=== PATIENT | male | born 1955 | race Caucasian/White ===

== ENCOUNTER 2021-04-27 21:50 | Emergency (ER) | payer MEDICARE, SELFPAY ==
[2021-04-27 23:20] VITALS: BP 113/58; PULSE 99; O2SAT 100
[2021-04-27 23:26] VITALS: BMI 22.8
[2021-04-27 23:27] VITALS: BP 113/58; PULSE 105; RESP 28; TEMP 36.6; O2SAT 100; BMI 22.8
[2021-04-27 23:29] LABS: Adenovirus F 40/41, stool Not Detected (NotDetected); Astrovirus Not Detected (NotDetected); Campylobacter Not Detected (NotDetected); Clostridium Difficile A/B, PCR Not Detected (NotDetected); Cryptosporidium Not Detected (NotDetected); Cyclospora Cayetanesis Not Detected (NotDetected); Entamoeba histolytica Not Detected (NotDetected); Enteroaggregative E coli Not Detected (NotDetected); Enteropathogenic E coli Not Detected (NotDetected); Enterotoxigenic E coli Not Detected (NotDetected); Giardia lamblia Not Detected (NotDetected); Norovirus Not Detected (NotDetected); Plesimonas Shigalloides, PCR Not Detected (NotDetected); Rotavirus A Not Detected (NotDetected); Salmonella, PCR Not Detected (NotDetected); Sapovirus Not Detected (NotDetected); Shiga-like toxin E coli Not Detected (NotDetected); Shigella Enterovasive E coli Not Detected (NotDetected); Vibrio Cholerae Not Detected (NotDetected); Vibrio, PCR Not Detected (NotDetected); Yersinia Entercolitica, PCR Not Detected (NotDetected)
--- NOTE | 2021-04-27 23:42 | XR_ITS ---
PROCEDURE INFORMATION: Exam: XR Chest Exam date and time: 04/27/2021 11:42 PM Age: 65 years old Clinical indication: Other: Weakness TECHNIQUE: Imaging protocol: XR of the chest. Views: 2 views. COMPARISON: CR CXR2 XR chest AP 08/08/2018 10:59 AM FINDINGS: Lungs: Unremarkable. No consolidation. Pleural spaces: Unremarkable. No pleural effusion. No pneumothorax. Heart/Mediastinum: Unremarkable. No cardiomegaly. Bones/joints: Unremarkable. Soft tissues: Skin folds project over the right apex. IMPRESSION: No acute cardiopulmonary disease
[2021-04-28] VITALS (12 sets, daily range): BP systolic 102–127; BP diastolic 50–71; PULSE 67–105; RESP 16–18; TEMP 36.6–36.8; O2SAT 98–100
[2021-04-28 00:20] LABS: Microscopic, Urine URINE MICROSCOPIC (MICROSCOPIC)
[2021-04-28 00:26] LABS: Alanine Aminotransferase 26 U/L (12-78); Albumin Level 4.5 g/dl (3.5-5.0); Albumin/Globulin Ratio 1.7 (1.1-1.8); Alkaline Phosphatase 88 U/L (38-126); Amylase 88 U/L (30-110); Aspartate Amino Transferase 34 U/L (17-59); Bilirubin,Total 0.5 mg/dl (0.2-1.3); Blood Urea Nitrogen 6 mg/dl (9-20); Carbon Dioxide 18 mmol/L (22.0-30.0); Chloride 110 mmol/L (98-107); Creatinine Clearance Estimated 59 mL/min (50-200); Estimated Glomerular Filt Rate 61 ml/min (>60); GFR (African American) 74 ML/MIN (>60); Globulin 2.6 g/dL (1.3-3.2); Glucose 109 mg/dl (74-100); Lipase 131 U/L (23-300); Sodium 145 mmol/L (136-145); Total Protein,Serum 7.1 g/dl (6.3-8.2)
[2021-04-28 00:26] LABS: Appearance,Urine CLEAR (Clear); Bilirubin,Urine Negative (Negative); Blood, Urine Negative (Negative); Color,Urine YELLOW (Yellow); Glucose,Urine (UA) Negative (Negative); Ketones,Urine TRACE (Negative); Leukocyte Esterase,Urine Negative (Negative); Nitrate,Urine Negative (Negative); Protein,Urine Negative (Negative); Specific Gravity, Urine 1.015 (1.005-1.030); Urobilinogen,Urine 0.2 EU/dl (0.2)
[2021-04-28 00:32] LABS: C-Reactive Protein 1.2 mg/L (0-4)
[2021-04-28 00:45] LABS: Procalcitonin 0.075 ng/mL (0.0-2.0)
[2021-04-28 00:47] LABS: WBC,Urine Occasional #/hpf (0-3)
--- NOTE | 2021-04-28 01:31 | [facility].EDWEAK ---
ED Disposition Clinical Impression: Schizophrenia Qualifiers: Schizophrenia type: unspecified Qualified Code(s): F20.9 - Schizophrenia, unspecified Bedbug bite Qualifiers: Encounter type: initial encounter Qualified Code(s): W57.XXXA - Bitten or stung by nonvenomous insect and other nonvenomous arthropods, initial encounter Disposition: Home, Self-Care Condition on Discharge: Good Instructions: DI for Schizophrenia Additional Instructions: see pcp for follow up Referrals: Provider,Referral, [Primary Care Provider] - - Critical Care Critical Care Time: No Attestation: On 04/27/21, the high probability of a clinically significant, sudden or life threatening deterioration of the following system(s) required my full and direct attention, intervention and personal management. The time I documented below is in addition to time spent performing reported procedures but includes the following listed in this critical care notation. Medical Decision Making - Medical Records Medical records reviewed: Yes: I reviewed the patient's medical records. - Joseph Inquiry Pt receiving controlled substance: No Vital Signs: 04/27/21 23:20 04/27/21 23:27 04/28/21 00:35 Temperature 97.8 F Temperature Source Oral Pulse Rate 99 H 98 H Pulse Rate [Right] 105 H Respiratory Rate 28 H Blood Pressure 113/58 L 125/54 L Blood Pressure [Right Arm] 113/58 L Blood Pressure Mean Blood Pressure Mean [Right Arm] 76 Blood Pressure Source [Right Arm] Automatic Cuff Blood Pressure Position [Right Arm] Supine 02 Sat by Pulse Oximetry 100 100 100 Oxygen Delivery Method Room Air Room Air Room Air 04/28/21 01:00 04/28/21 01:30 04/28/21 02:01 Temperature Temperature Source Pulse Rate 105 H 104 H 81 Pulse Rate [Right] Respiratory Rate Blood Pressure 116/52 L Blood Pressure [Right Arm] Blood Pressure Mean 78 Blood Pressure Mean [Right Arm] Blood Pressure Source [Right Arm] Blood Pressure Position [Right Arm] 02 Sat by Pulse Oximetry 100 100 99 Oxygen Delivery Method Room Air 04/28/21 02:30 04/28/21 03:01 04/28/21 03:30 Temperature Temperature Source Pulse Rate 70 84 83 Pulse Rate [Right] Respiratory Rate Blood Pressure 106/59 L 118/71 120/60 Blood Pressure [Right Arm] Blood Pressure Mean 79 81 78 Blood Pressure Mean [Right Arm] Blood Pressure Source [Right Arm] Blood Pressure Position [Right Arm] 02 Sat by Pulse Oximetry 100 100 100 Oxygen Delivery Method Room Air Room Air Room Air 04/28/21 04:00 Temperature Temperature Source Pulse Rate 90 Pulse Rate [Right] Respiratory Rate Blood Pressure 102/50 L Blood Pressure [Right Arm] Blood Pressure Mean 67 Blood Pressure Mean [Right Arm] Blood Pressure Source [Right Arm] Blood Pressure Position [Right Arm] 02 Sat by Pulse Oximetry 100 Oxygen Delivery Method Room Air - Lab Data Lab results reviewed: Yes: I reviewed the patient's lab results. Lab Results 04/27/21 23:00: Stl Aeromonas (PCR) Not detected, Stl C. cayetanensis PCR Not detected, Stool Rotavirus (PCR) Not detected, Stl Adenov F 40/41 PCR Not detected, Stool Astrovirus (PCR) Not detected, Stool Campylobacter PCR Not detected, Stl C.difficile Tox PCR Not detected, Stool Cryptosporidium PCR Not detected, Stl E.coli Shiga Tox PCR Not detected, Stool E coli O157 PCR Not detected, Stl Enterotoxigenic E PCR Not detected, Stool EPEC (PCR) Not detected, Stool EAEC (PCR) Not detected, Stl E. histolytica PCR Not detected, Stool Giardia Lamblia PCR Not detected, Stool Salmonella PCR Not detected, Stool Sapovirus (PCR) Not detected, Stl P. shigelloides PCR Not detected, Stl Shigella/EIEC PCR Not detected, St Y.enterocolitica PCR Not detected, Stool Vibrio (PCR) Not detected, Stl Vibrio cholerae PCR Not detected, Stl Norovirus GI/GII PCR Not detected 04/27/21 23:55: WBC 8.4, RBC 4.62, Hgb 11.3 L, Hct 36.4 L, MCV 78.9 L, MCH 24.5 L, MCHC 31.0 L, RDW
[2021-04-28 01:54] LABS: Ethyl Alcohol < 10 mg/dl (0-10)
[2021-04-28 01:55] LABS: Barbiturates Screen,Urine Negative ng/ml (<200)
[2021-04-28 01:56] LABS: Amphetamine/Metha Screen,Urine Negative ng/ml (<1000); Benzodiazepines Screen,Urine Negative ng/ml (<200)
[2021-04-28 01:57] LABS: Cannabinoid Screen,Urine Negative ng/ml (<50)
[2021-04-28 01:58] LABS: Cocaine Screen,Urine Negative ng/ml (<300); Methadone Screen,Urine Negative ng/ml (<300)
[2021-04-28 01:59] LABS: Opiate Screen,Urine Negative ng/ml (<300)
[2021-04-28 02:00] LABS: Phencyclidine Screen,Urine Negative ng/ml (<25)
[2021-04-28 03:03] LABS: Acetaminophen < 10 ug/ml (10-30); Salicylate < 1.0 mg/dL (2.0-20.0)
[2021-04-28 03:25] LABS: Troponin I < 0.01 ng/ml (0.00-0.034)
[2021-04-28 03:31] LABS: Erythrocyte Sedimentation Rate 2 mm/hr (0-20)
[2021-04-28 03:37] LABS: Basophils % 0.3 % (0.1-2.0); Eosinophils # 0.1 K/mm3 (0.0-0.4); Eosinophils % 0.6 % (0.1-12.0); Hematocrit 36.4 % (42.0-52.0); Hemoglobin 11.3 g/dL (14.1-18.0); Lymphocytes # 0.8 K/mm3 (0.7-4.5); Lymphocytes % 9.7 % (10-50); Mean Corpuscular Hemoglobin 24.5 pg (27.0-31.2); Mean Corpuscular Volume 78.9 fl (80-94); Mean Platelet Volume 8.3 fl (7.4-10.4); Monocytes # 0.5 K/mm3 (0.1-1.0); Monocytes % 5.7 % (1.7-9.3); Neutrophils % 83.7 % (37.0-80.0); Platelet Count 523 K/mm3 (142-424); Red Blood Count 4.62 M/mm3 (4.60-6.20); Red Cell Distribution Width 21.3 % (11.5-17.5); White Blood Count 8.4 K/mm3 (4.8-10.8)
--- NOTE | 2021-04-28 05:20 | PC.NURSE ---
Pt has no way to get home and his clothes were taken away and bagged due to Bedbugs and incontinent stool. Pt waiting in ER while waiting for help with clothing and a ride home, will turn it over to Case Management in AM
--- NOTE | 2021-04-28 07:50 | PC.NURSE ---
CALLED DIETARY FOR REGULAR DIET
--- NOTE | 2021-04-28 08:05 | PC.NURSE ---
CALLED AND LEFT A VOICEMAIL ON [facility], CARE MANAGEMENT PHONE ABOUT PATIENT FOR EITHER TRANSPORTATION HOME OR POSSIBLE PLACEMENT
--- NOTE | 2021-04-28 09:26 | PC.NURSE ---
Care management actively trying to obtain a ride for patient
--- NOTE | 2021-04-28 09:38 | SW/DCPLANNER ---
SET UP [facility] TO TAKE PATIENT HOME FROM THE HOSPITAL...
== END 2021-04-28 09:40 | disposition home or self-care (01) ==
PROVIDERS: Emergency Provider Emergency Medicine
DX: R53.83 Other fatigue (principal); T14.8XXA Other injury of unspecified body region, initial encounter; W57.XXXA Bitten or stung by nonvenomous insect and other nonvenomous arthropods, initial encounter; Y92.414 Local residential or business street as the place of occurrence of the external cause; F20.9 Schizophrenia, unspecified; Z79.899 Other long term (current) drug therapy
CPT/HCPCS: 71046; 80053; 80305; 80329; 81001; 82150; 83690; 84145; 84484; 85025; 85651; 86140; 87507; 96365; 99283

== ENCOUNTER 2022-11-23 11:21 | Outpatient (RCR) | payer MEDICARE, SELFPAY | END 2022-11-23 13:00 | disposition home or self-care (01) | LOC: OT 11:21 | PROVIDERS: Visit Provider Physician Assistant | DX: G56.03 Carpal tunnel syndrome, bilateral upper limbs (principal) ==